=== PATIENT | female | born 1970 | race Caucasian/White ===

== ENCOUNTER → 2021-12-05 13:59 | Outpatient (BNVA) | payer BC, SELFPAY | PROVIDERS: Visit Provider Physician Assistant | DX: K31.6 Fistula of stomach and duodenum (principal); E66.9 Obesity, unspecified; K44.9 Diaphragmatic hernia without obstruction or gangrene; Z71.3 Dietary counseling and surveillance; Z98.84 Bariatric surgery status; Z98.890 Other specified postprocedural states ==

== ENCOUNTER → 2022-01-05 10:28 | Outpatient (BNVA) | payer BC, SELFPAY | PROVIDERS: Visit Provider Physician Assistant | DX: Z13.89 Encounter for screening for other disorder (principal) ==

== ENCOUNTER → 2022-01-29 11:29 | Outpatient (BNVA) | payer BC, SELFPAY | PROVIDERS: Visit Provider Physician Assistant | DX: R10.9 Unspecified abdominal pain (principal) ==